=== PATIENT | male | born 1940 | race Caucasian/White ===

== ENCOUNTER 2017-07-27 16:59 | Observation (INO) | payer MEDICARE, OTHER ==
[2017-07-27 19:23] LABS: #Basophils 0.1 thou/uL (0.0-0.2); #Eosinphils 0.1 thou/uL (0.0-0.7); #Lymphocytes 1.4 thou/uL (1.20-3.40); #Monocytes 1.8 thou/uL (0.11-0.59); #Neutrophils 11.9 thou/uL (1.40-6.50); %Basophils 0.7 % (0.0-1.0); %Eosinophils 0.4 % (0.0-10.0); %Lymphocytes 9.4 % (21.0-51.0); %Monocytes 11.6 % (0.0-10.0); %Neutrophils 77.9 % (42.0-75.0); Mean Corpuscular HGB CONC 35.2 g/dL (32.0-36.0); Mean Corpuscular Hemoglobin 30.7 pg (27.0-31.0); Platelet Count 284 thou/uL (130-400); RBC Distribution Width 12.7 % (11.5-14.5); Red Blood Cell (RBC) Count 4.88 mill/uL (4.70-6.10); White Blood Cell (WBC) Count 15.3 thou/uL (4.8-10.8)
[2017-07-27] MEDS ORDERED: Fentanyl 100 MCG/2 ML VIAL ONE (19:30)
[2017-07-27 19:43] LABS: ALT (SGPT) 25 U/L (8-55); AST (SGOT) 80 U/L (5-34); Albumin 3.9 g/dL (3.4-4.8); Alkaline Phosphatase 97 U/L (40-150); Anion Gap 13 mmol/L (10-20); BUN (Urea Nitrogen) 15 mg/dL (8.4-25.7); Bilirubin, Total 1.2 mg/dL (0.2-1.2); Calc. Creatinine Clearance 0 mL/min (70-130); Calcium 9.1 mg/dL (7.8-10.44); Carbon Dioxide 20 mmol/L (23-31); Chloride 103 mmol/L (98-107); Estimated GFR-MDRD Greater than 90; Globulin 3.3 g/dL (2.4-3.5); Glucose 131 mg/dL (83-110); Potassium 4.1 mmol/L (3.5-5.1); Protein, Total 7.2 g/dL (5.8-8.1); Sodium 132 mmol/L (136-145)
--- NOTE | 2017-07-27 20:30 | CT ---
CT OF BRAIN WITHOUT CONTRAST: 07/27/17 INDICATION: History of fall last night. Unsure about loss of consciousness but reported head pain and abrasion ri ght forehead. FINDINGS: There is a prominent right frontal scalp contusion. No acute infarct, hemorrhage, or hydrocephalus is present. There is mild generalized cerebral atrophy. There is incidental note of a tri cisterna mag na. There is mild chronic small vessel white matter ischemic change. The mastoid air cells are clear. There is moderate mucosal thickening within the right maxillary sinus and ethmoid air cells. IMPRESSION: 1. No acute intracranial abnormality. 2. Mild chronic small vessel white matter ischemic change. 3. Prominent paranasal sinus disease. POS: [facility]
--- NOTE | 2017-07-27 20:52 | CT ---
CT FACE WITHOUT CONTRAST: INDICATIONS: Fall with facial injury. FINDINGS: There is a prominent right frontal scalp and right periorbital contusion. There is nondisplaced left nasal bone fracture that may be remote. There is extensive mucosal thickening within the ethmoid ai r cells and right maxillary sinus. There is thickening of the right maxillary sinus wall, suspicious for chronic osteitis, related to paranasal sinus disease. The orbital rims are intact. The maxilla ry sinus graf are intact. There is prominent periodontal disease involving the alveolar ridge of th e maxilla. The mandible is intact. The zygomatic arches and pterygoid plates are intact. There is a burst fracture involving C1 that is better detailed on the cervical spine . IMPRESSION: 1. No definite acute facial fracture. 2. Chronic right maxillary sinusitis. There is also prominent paranasal sinus disease of the ethmoi d air cells. 3. Remote appearing left nasal bone fracture. 4. C1 fracture. POS: [facility]
--- NOTE | 2017-07-27 20:54 | CT ---
CT CERVICAL SPINE WITHOUT CONTRAST 07/27/17 INDICATION: Fall with neck pain. FINDINGS: There is a mildly displaced bilateral posterior arch fracture of C1. There is also a left anterior ar ch fracture of C1. Occipital condyles appear within normal limits. There are calcifications of the at lantoaxial ligamentous structures. There is posterolateral spinal fixation spanning C3 through T2. Th ere are posterior decompression at C5 through C7. There is ankylosis of the C5 through C7 vertebral b odies. There is scattered vascular calcification. There is paraseptal emphysema involving the lung ap ices. IMPRESSION: 1. Comminuted mildly displaced fracture involving the posterior and anterior arch of C1.([place] on fracture of C1) 2. Extensive postsurgical and degenerative changes of the cervical spine. POS: [facility]
--- NOTE | 2017-07-27 23:03 | HP ---
REQUESTING PHYSICIAN: Dr. Holland, Emergency Department. ADMITTING PHYSICIAN: Dr. Low. CONSULTING PHYSICIAN: Dr. Ramos, Neurosurgery. HISTORY OF PRESENT ILLNESS: Mr. Hearn is a 76-year-old man who was apparently in his usual state o f health yesterday when he fell from his wheelchair while getting out of the shower. He reports that he had consumed alcohol earlier in the day and typically does not drink alcohol and was attempting t o get out of the shower when he slipped on a towel and fell to the ground. This happened at apparent ly 2200 hours yesterday. He reports continuing pain in his neck. He also reported striking his face on the door frame and sustaining ecchymosis to his right eye. He has a history of cervical myelopat hy with a posterior cervical fusion of C3 through T2 done in 2015. He reports chronic spasms of lowe r extremities since that time. So, he typically gets around in a wheelchair due to his limited mobil ity from the cervical fusion and cervical myelopathy. Workup in ED today identified a C1 fracture. Trauma Services was consulted for admission and management. Neurosurgery was consulted by the VICENTA dale and the patient has been seen in the ER by Neurosurgery. He reports that pain is significant in his posterior neck. A cervical collar has been placed. He describes his motor and sensory to be the same as prior to the fall. PAST MEDICAL HISTORY: Hypothyroid. PAST SURGICAL HISTORY: Posterior cervical fusion C3 through T2 in 2016, left knee surgery in 1975. SOCIAL HISTORY: Alcohol: The patient reports he drinks rarely; however, did consume alcohol on the day of injury. The patient denies drug use. The patient denies tobacco use. CURRENT MEDICATIONS: 1. Synthroid, unknown dosage. 2. Senokot. 3. Aleve as needed. LABORATORY DATA: WBC 15.3, RBC 4.88, hemoglobin 15.0, hematocrit 42.5, platelets 284. Chemistry: S odium 132, potassium 4.1, chloride 103, carbon dioxide 20, BUN 15, creatinine 0.80, glucose 131, AST 80, ALT 25, alkaline phosphatase 97. DIAGNOSTIC IMAGING: C1 Mac fracture identified on cervical spine CT. REVIEW OF SYSTEMS: Constitutional: The patient denies chills, fever, recent weight loss or generali zed malaise. HEENT: Reports right eye swelling and bruising. Denies rhinorrhea or otorrhea. Repor ts posterior neck pain. Cardiovascular: Denies chest pain, palpitations, syncope. Respiratory: De nies shortness of breath, cough, wheezing. Gastrointestinal: Denies abdominal pain, nausea, vomitin g, diarrhea. Genitourinary: Denies dysuria, hematuria. Musculoskeletal: Reports chronic spasms in lower extremities. Skin: Reports abrasion to right forehead. Neurologic: Reports chronic neuropa thy bilateral lower extremities. PHYSICAL EXAMINATION: VITAL SIGNS: Blood pressure 112/61, pulse 97, respirations 20, temperature 98.8, O2 sat 95% on room air. Pain 0/10. CONSTITUTIONAL: Well-developed, well-nourished male, in no acute distress, nontoxic appearing. HEENT: Cervical collar in place. Posterior neck tenderness. Right periorbital ecchymosis. Trachea midline. RESPIRATORY: Bilateral breath sounds clear. No respiratory distress. Chest wall movement symmetric al. CARDIOVASCULAR: Regular rate and rhythm. Heart sounds normal. ABDOMEN: Soft, nontender, nondistended. BACK: No tenderness. EXTREMITIES: Moves all extremities. Strength equal in all extremities. Cap refill brisk. Pulses i ntact, 2+. NEUROLOGIC: GCS is 15. Awake, alert, and oriented x3. SKIN: Warm and dry, normal in color, normal temperature. PSYCHIATRIC: Normal mood and affect. ASSESSMENT: 1. Status post fall from wheelchair. 2. C1 fracture. 3. Acute traumatic pain. 4. Right periorbital ecchymosis. PLAN: 1. Admit to surgical floor for neurologic monitoring and pain control. 2. Clear liquid diet. 3. PT, OT evaluation. 4. Rehab screening. 5. Appreciate neurosurgical recommendations. 6. Pepcid for PUD prophylaxis. 7. SCDs for DVT prophylaxis. 8. Nursing to verify home medications. The patient was discussed with Dr. Low at the time of admission.
[2017-07-27] MEDS ORDERED: Bisacodyl 10 MG SUPP PR PRN (23:13)
[2017-07-27] MEDS ORDERED: hydrALAZINE 20 MG/ML VIAL SLOW IVP PRN (23:13)
[2017-07-27] MEDS ORDERED: Dextrose 5% in Water 1,000 ML IV PRN (23:13)
[2017-07-27] MEDS ORDERED: Dextrose 50% Abboject 50 ML SYRINGE SLOW IVP PRN (23:13)
[2017-07-27 23:58] VITALS: BMI 29.6
[2017-07-28] MEDS: Acetaminophen 500 MG TAB PO SCH ×4 (00:49→16:57)
--- NOTE | 2017-07-28 04:52 | CON ---
NEUROSURGICAL SERVICE HISTORY OF PRESENT ILLNESS: Mr. Hearn is a 76-year-old man who was brought to the emergency depart ment today at [facility] after falling from his wheelchair last night and falling on his fac e where he suffered a right orbital hematoma. He had continued and increasing neck pain, which ultim ately brought him to the emergency department today. CT scan performed here at the brain, it is nega tive for any intracranial abnormality and the cervical spine reveals a Mac-type fracture of the first cervical vertebrae involving the left anterior arch and the right posterior arch just medial t o the lateral mass of C1 on the right. There does not look to be any significant displacement in the facet articulation of C1-C2, so at least for now it does not appear to be significantly unstable. A lso on this CAT scan, it does reveal, but he has a posterior cervical fusion and decompression and la minectomy from C3-T2. He states at bedside this was performed in 2016 by surgeon in [place] for cervi miguel myelopathy, but he still suffers consequence from today, which is why he is in a wheelchair at [facility] when he fell. At bedside, he is in a cervical collar, again he does have this right periorbital h ematoma and ecchymosis, but can open his eyes. Pupils are equally round and reactive to light. His extraocular movements are intact. He has a normal nonfocal upper extremity motor exam with only jorge l r clumsiness of the hand. His bilateral lower extremities are stiff and slow to move and are somewha t spastic with slightly increased reflexes at the patellar bilaterally. He does reiterate the fact t hat at home, he is mostly in a wheelchair for mobility purposes. ASSESSMENT: C1 Mac fracture. PLAN: From a neurosurgical standpoint, we do not believe that this will be a surgical intervention, however, I believe the prior admission, mostly for the fact that this would be an unsafe fracture to send somebody home who is so unstable and unsteady on his feet, I believe we will need to bring him i n, fit him for better cervical collar as this is a rather ill-fitting one and have been worked up for rehab admission for the purpose of his myelopathic symptoms. He will need to wear his collar at all times. We will also need to obtain a [place] collar, but he can wear during bathing. This aylin l likely need to be in place for at least 6 to 8 weeks. We will plan to follow up with him intervall y every 2 weeks in clinic. Otherwise, I do not forsee him to have any significant trouble from this going forward as long as he continues to wear his collar. This was conveyed to him and his family at bedside.
[2017-07-28] MEDS: Polyethylene Glycol 3350 17 GM Packet PO SCH (07:49)
[2017-07-28] MEDS: traMADol HCl 50 MG TAB PO PRN ×2 (07:49→16:56)
[2017-07-28] MEDS: Senokot S 8.6-50 MG TAB PO SCH ×2 (07:49→20:01)
[2017-07-28] MEDS: Famotidine 20 MG TAB PO SCH ×2 (07:49→20:01)
--- NOTE | 2017-07-28 08:35 | PRG ---
DATE OF SERVICE: 07/28/2017 Mr. Hearn is a 76-year-old male with a history of cervical myelopathy status post posterior cervica l fusion. He has a baseline degree of significant disability. He was in his wheelchair yesterday an d he fell from his wheelchair. This prompted an ER visit where he had an evaluation in the ER which revealed the presence of a C1 fracture consistent with a Mac type fracture. I have reviewed th e CT imaging and do not believe this will need to be treated surgically. We will maintain him in a c ervical spine collar and follow up with him over a series of outpatient appointments with appropriate imaging. He can be discharged at any time from my perspective to a rehab versus usp víctor veronica back to where he was living. Neurosurgical service will sign off.
[2017-07-28] MEDS ORDERED: Sodium Chloride 0.9% 500 ML IV SCH (10:00)
--- NOTE | 2017-07-28 11:12 | PRG-2 ---
DATE OF SERVICE: 07/28/2017 ATTENDING PHYSICIAN: Dr. Raymundo Campos SUBJECTIVE: Mr. Hearn is a 76-year-old male who now fell out of his wheelchair on 07/26/2017. The patient was found to have a mildly displaced C1 fracture. The patient has been in a C-collar since initial evaluation. He reports continued neck pain that is worse with sitting up and better when he lies down. The patient also reports a headache, but that has since resolved. The patient was able t o tolerate clear liquid diet without difficulty. The patient is passing gas, but has not had a bowel movement since his initial hospitalization. The patient normally mobilizes with a wheelchair due to preexisting cervical myelopathy and chronic spasms of the lower extremity. OBJECTIVE: VITAL SIGNS: Temperature 97.8, pulse 77, respiratory rate 16, O2 sat 95% on room air, blood pressure 88/49. GENERAL: Well-developed, well-nourished elderly male lying in bed with a C-collar in place, in no ac [place] distress. HEENT: Normocephalic. Ecchymosis surrounding bilateral eyes. NECK: C-collar in place. RESPIRATORY: No use of accessory muscles of respiration. Clear to auscultation bilaterally. CARDIOVASCULAR: Regular rate and rhythm. No murmurs, gallops. ABDOMEN: Nondistended, soft, nontender. Normoactive bowel sounds. EXTREMITIES: Moves all extremities equally. No peripheral edema. NEUROLOGIC: GCS 15. Alert, awake, oriented x3. No gross neuro deficits. ASSESSMENT: 1. Status post fall from wheelchair. 2. C1 fracture. 3. Bilateral periorbital ecchymosis. 4. Acute traumatic pain. PLAN: 1. Advance diet to regular diet. 2. Continue C-collar for mobilization and follow up with Neurosurgery outpatient. 3. PT, OT and rehab screen. 4. Tramadol and Tylenol for pain control. 5. Pepcid for GI prophylaxis. 6. SCDs for DVT prophylaxis. Dr. Campos saw and examined the patient and formulated the plan with me.
[2017-07-29] MEDS: Acetaminophen 500 MG TAB PO SCH ×4 (00:08→18:31)
--- NOTE | 2017-07-29 01:53 | PRG ---
DATE OF SERVICE: 07/29/2017 SUBJECTIVE: Patient is currently on the surgical floor status post fall from his wheelchair and was sustained a C1 fracture. Patient is going to be treated in a cervical collar and is currently awaiti ng placement decision. By nursing report, the patient's pain is controlled and he is tolerating regu lar diet. Patient was also awaiting a new cervical collar, otherwise he has had no issues. OBJECTIVE: VITAL SIGNS: Temperature is 98.1, heart rate 60, blood pressure 94/60, respirations 16, oxygen satur ation 97% on room air. GENERAL: Patient is asleep in bed and appears in no distress. ASSESSMENT AND PLAN: 1. Status post mechanical fall. 2. C1 fracture. Plan: Will be to continue supportive care and then await placement decision and new cervical collar.
[2017-07-29 05:05] LABS: Anion Gap 11 mmol/L (10-20); BUN (Urea Nitrogen) 15 mg/dL (8.4-25.7); Calc. Creatinine Clearance 96 mL/min (70-130); Calcium 8.5 mg/dL (7.8-10.44); Carbon Dioxide 24 mmol/L (23-31); Chloride 109 mmol/L (98-107); Estimated GFR-MDRD Greater than 90; Glucose 81 mg/dL (83-110); Magnesium 1.8 mg/dL (1.6-2.6); Phosphorus 2.8 mg/dL (2.3-4.7); Potassium 3.8 mmol/L (3.5-5.1); Sodium 140 mmol/L (136-145)
[2017-07-29 05:48] LABS: Band 6 % (5-11); Eosinophils 5 % (0-10); Lymphocytes 22 % (21-51); MDiff Complete? YES; Mean Corpuscular HGB CONC 34.9 g/dL (32.0-36.0); Mean Corpuscular Hemoglobin 31.4 pg (27.0-31.0); Mean Corpuscular Volume 90.1 fl (80.0-94.0); Mean Platelet Volume 7.5 fL (7.4-10.4); Monocytes 16 % (0-10); Neutrophil 43 % (42-75); PLT Morphology Comment Appears Adequate; Platelet Count 238 thou/uL (130-400); RBC Distribution Width 13.1 % (11.5-14.5); RBC Morphology Normal; Reactive Lymphocytes 7 % (0-10); Red Blood Cell (RBC) Count 4.14 mill/uL (4.70-6.10); White Blood Cell (WBC) Count 9.5 thou/uL (4.8-10.8)
[2017-07-29] MEDS: Famotidine 20 MG TAB PO SCH ×2 (08:34→21:17)
[2017-07-29] MEDS: Polyethylene Glycol 3350 17 GM Packet PO SCH (08:34)
[2017-07-29] MEDS: Senokot S 8.6-50 MG TAB PO SCH ×2 (08:34→21:17)
[2017-07-29] MEDS ORDERED: Lactated Ringer's 500 ML IV SCH (10:15)
[2017-07-29] MEDS: traMADol HCl 50 MG TAB PO PRN (13:15)
--- NOTE | 2017-07-29 19:37 | PRG ---
DATE OF SERVICE: 07/29/2017 ATTENDING PHYSICIAN: Dr. Campos. SUBJECTIVE: Mr. Hearn is a 76-year-old male, who fell out of his wheelchair on 07/26/2017 and was found to have a mildly displaced C1 fracture. He has a history of cervical myelopathy with C2 and C3 fusion. He has chronic bilateral lower extremity spasticity and is mostly confined to a wheelchair. This morning on exam, he is alert, lying in bed. He reports adequate pain control and voices no ot her complaints. OBJECTIVE: VITAL SIGNS: Blood pressure 102/66, pulse 75, temperature 98.3, respirations 14, O2 sat 95% on room air. GENERAL APPEARANCE: The patient is an elderly adult male, lying in bed. He has a C-collar in place. He is in no acute distress. HEENT: Normocephalic. He has bilateral periorbital ecchymosis. He has a C-collar in place. RESPIRATORY: Breath sounds are clear to auscultation bilaterally with normal effort. CARDIOVASCULAR: He has a regular rate and rhythm with no murmurs, gallops or rubs. ABDOMEN: Soft, nontender, nondistended. He has normal bowel sounds. EXTREMITIES: He is neurovascularly intact x4. NEUROLOGIC: His GCS is 15 this morning. He has no focal deficits. LABORATORY DATA: Today, CBC significant for white blood cells at 9.5, hemoglobin 13.0, hematocrit 37 .3, platelets 238. Chemistry significant for a chloride of 109, glucose of 81. His potassium is bor derline low at 3.8, magnesium borderline low at 1.8. IMAGING: There are no images to review today. ASSESSMENT: 1. Status post fall from wheelchair. 2. C1 burst fracture. 3. Bilateral periorbital ecchymosis. 4. Acute traumatic pain. 5. History of cervical myelopathy with bilateral lower extremity spasticity. PLAN: 1. Continue regular diet. 2. PT and OT for help with mobilization. 3. We will consult Neurosurgery for recommendations for starting chemical deep venous thrombosis pro phylaxis. 4. Case management is following for help with discharge planning. The patient will likely discharge to rehabilitation. This patient was seen and examined along with Dr. Raymundo Campos on rounds, who agrees with the assess ment and plan.
[2017-07-29] MEDS: Enoxaparin Sodium 40 MG/0.4 ML SYRINGE SC SCH (21:17)
[2017-07-30] MEDS: Acetaminophen 500 MG TAB PO SCH ×5 (00:11→23:46)
[2017-07-30] MEDS: Senokot S 8.6-50 MG TAB PO SCH ×2 (09:18→20:31)
[2017-07-30] MEDS: Polyethylene Glycol 3350 17 GM Packet PO SCH (09:18)
[2017-07-30] MEDS: Famotidine 20 MG TAB PO SCH ×2 (09:18→20:31)
--- NOTE | 2017-07-30 17:25 | PRG ---
DATE OF SERVICE: 07/30/2017 ATTENDING PHYSICIAN: Raymundo Campos DO SUBJECTIVE: Mr. Hearn is a 76-year-old male who fell out of his wheelchair on 07/26/2017 and was f ound to have a mildly displaced C1 fracture. He has a history of cervical myelopathy with C2 and C3 fusion. He was placed in a [place] J collar and started on physical and occupational therapy. He repo rts adequate pain control. He reports that he is anticipating being discharged to rehabilitation. OBJECTIVE: VITAL SIGNS: Temperature 98.2, pulse 60, respirations 18, O2 sat 97% room air, blood pressure 135/69 . GENERAL: Well-developed, well-nourished male, in no acute distress, lying in bed. HEENT: Atraumatic, normocephalic. Cervical collar in place. RESPIRATORY: Bilateral breath sounds clear to auscultation. No respiratory distress. CARDIOVASCULAR: Regular rate and rhythm. Heart sounds normal. ABDOMEN: Soft, nontender, nondistended. EXTREMITIES: Neurovascular intact x4. Pulses 2+ peripherally. Cap refill brisk. NEUROLOGIC: GCS 15. Awake, alert, oriented x3. No focal deficits. ASSESSMENT: 1. Status post fall from wheelchair. 2. C1 burst fracture. 3. History of cervical myelopathy. 4. Nonoperative management of C1 burst fracture, placed in [place] J collar. 5. Mobilizing with physical and occupational therapy. PLAN: 1. Continue physical and occupational therapy as ordered. 2. Continue regular diet. 3. Lovenox for DVT prophylaxis. 4. Pepcid for PUD prophylaxis. 5. Case management following for discharge planning. Anticipate patient will discharge to rehab in the next 2-3 days. The patient was seen and examined with Dr. Campos, who agrees with plan.
[2017-07-30] MEDS: traMADol HCl 50 MG TAB PO PRN (20:31)
[2017-07-30] MEDS: Enoxaparin Sodium 40 MG/0.4 ML SYRINGE SC SCH (20:32)
[2017-07-31] MEDS: Acetaminophen 500 MG TAB PO SCH ×4 (05:43→23:40)
[2017-07-31] MEDS: Famotidine 20 MG TAB PO SCH ×2 (08:40→20:34)
[2017-07-31] MEDS: traMADol HCl 50 MG TAB PO PRN ×2 (08:40→20:34)
[2017-07-31] MEDS: Polyethylene Glycol 3350 17 GM Packet PO SCH (08:40)
[2017-07-31] MEDS: Senokot S 8.6-50 MG TAB PO SCH ×2 (08:40→20:34)
[2017-07-31] MEDS: Enoxaparin Sodium 40 MG/0.4 ML SYRINGE SC SCH (20:35)
--- NOTE | 2017-07-31 20:58 | PRG ---
DATE OF SERVICE: 07/31/2017 ATTENDING PHYSICIAN: Dr. Raymundo Campos. SUBJECTIVE: Mr. Hearn is a 76-year-old male who fell out of his wheelchair on 07/26/2017, was foun d to have a mildly displaced C1 fracture. He has a history of cervical myelopathy with C2 and C3 fus ion. He was placed in a [place] J collar and started with physical and occupational therapy. He has b een stable in the surgical floor. He is currently awaiting approval for placement and rehab facility . OBJECTIVE: VITAL SIGNS: Temperature 97.5, pulse 78, respirations 14, O2 sat 98% room air, and blood pressure 12 8/78. GENERAL: Elderly male sitting up in chair, no acute distress, nontoxic appearing. HEENT: Atraumatic, normocephalic. NECK: [place] J cervical collar in place. RESPIRATORY: Bilateral breath sounds clear. No respiratory distress. CARDIOVASCULAR: Regular rate and rhythm. Heart sounds normal. ABDOMEN: Soft, nontender, nondistended. EXTREMITIES: Neurovascular intact x4. Pulses 2+ peripherally. Cap refill brisk. NEUROLOGIC: GCS 15, awake, alert, oriented x3. No focal deficits. ASSESSMENT: 1. Status post fall from wheelchair. 2. C1 burst fracture. 3. History of cervical myelopathy. 4. Nonoperative management of C1 burst fracture, placed in [place] J collar. 5. Mobilizing with physical and occupational therapy. PLAN: 1. Continue physical and occupational therapy as ordered. 2. Continue regular diet. 3. Lovenox for DVT prophylaxis. 4. Pepcid for PUD prophylaxis. 5. Encourage the patient to request tramadol if he begins to experience pain. The patient reports h e is not want to take anything more than Tylenol. 6. Case management following for discharge planning. Anticipate patient will discharge to rehab whe never approval obtained. The patient was seen and examined with Dr. Campos, who agrees with plan.
[2017-08-01] MEDS: Acetaminophen 500 MG TAB PO SCH ×4 (05:56→23:29)
[2017-08-01] MEDS: Senokot S 8.6-50 MG TAB PO SCH ×2 (08:34→21:01)
[2017-08-01] MEDS: Famotidine 20 MG TAB PO SCH ×2 (08:34→21:01)
[2017-08-01] MEDS: Polyethylene Glycol 3350 17 GM Packet PO SCH (08:34)
--- NOTE | 2017-08-01 09:39 | PRG ---
DATE OF SERVICE: 08/01/2017 SUBJECTIVE: Mr. Hearn is a 76-year-old man status post ground level fall where he sustained a C1 f racture. The patient is currently being managed with a C-collar. He remains hemodynamically and chyna rologically stable. [place] coma scale is 15. He moves all extremities and answers questions approp riately. The patient is tolerating general diet, having normal bowel and urinary function. He remai ns unsteady on his gait; however participated well with physical therapy. OBJECTIVE: VITAL SIGNS: Today includes blood pressure is 95/59, pulse is 51, respiratory rate 16, temperature i s 97.9 degrees Fahrenheit, and oxygen saturation is 97% on room air. HEENT: Reveals normocephalic and atraumatic. Pupils are equal, round, reactive to light and accommo dation. HEART: Reveals regular rate and rhythm, no murmurs or gallops auscultated. LUNGS: Clear to auscultation bilaterally. Breathing is regular and unlabored. ABDOMEN: Soft, nontender, nondistended. EXTREMITIES: Reveals 2+ radial and pedal pulses bilaterally. No ankle edema is present. MUSCULOSKELETAL: Examination reveals 5/5 muscle strength in both upper and lower extremities bilater ally. NEUROLOGIC: Examination reveals no focal deficits present. IMPRESSION: 1. Post-injury day #5, status post ground level fall. 2. C1 burst fracture, normal. PLAN: Continue physical and occupational therapy. The patient is pending transfer to inpatient reha bilitation once bed becomes available.
[2017-08-01] MEDS: traMADol HCl 50 MG TAB PO PRN ×2 (16:36→23:29)
[2017-08-01] MEDS: Enoxaparin Sodium 40 MG/0.4 ML SYRINGE SC SCH (21:01)
[2017-08-02] MEDS: Acetaminophen 500 MG TAB PO SCH ×2 (07:19→11:48)
[2017-08-02] MEDS: Senokot S 8.6-50 MG TAB PO SCH (08:37)
[2017-08-02] MEDS: Famotidine 20 MG TAB PO SCH (08:37)
[2017-08-02] MEDS: Polyethylene Glycol 3350 17 GM Packet PO SCH (08:37)
[2017-08-02 11:46] VITALS: BP 104/69; TEMP 97.7
--- NOTE | 2017-08-02 14:19 | DIS ---
DATE OF ADMISSION: 07/27/2017 DATE OF DISCHARGE: 08/02/2017 ADMITTING PHYSICIAN: Dr. Low. DISCHARGING PHYSICIAN: Dr. Campos. ADMISSION DIAGNOSIS: C1 burst fracture. DISCHARGE DIAGNOSIS: C1 burst fracture. PROCEDURES PERFORMED: None. HOSPITAL COURSE: Mr. Hearn is a 76-year-old male who was in his usual state of health when he fell out of his wheelchair while getting out of the shower. He was brought to the [facility] ED where he was evaluated and found to have a C1 burst fracture. Neurosurgery was consulted and trauma service was asked to admit. The patient was placed in a [place] J collar per Neurosurgery recommendations with a [place] collar to supplement during showering. The patient remained hemodynamically and neur ologically stable throughout his stay. He was thought to be a good candidate for rehabilitation. Marvin barrow, on 08/02/2017, the patient decided to go home rather than continue to wait on a rehab placemen t. The patient was counseled about the benefit of going to rehab, but ultimately decided that he wan mary to go home instead. The patient was discharged to home in stable condition on 08/02/2017. DISCHARGE MEDICATIONS: The patient was given a prescription for tramadol 50 mg tablets 1 tablet q.6 hours as needed for pain. NURSING INSTRUCTIONS: Regular diet. THERAPY INSTRUCTIONS: None. EQUIPMENT AND SUPPLIES: [place] J collar and Pratt collar. FOLLOWUP INSTRUCTIONS: The patient is instructed to follow up with his PCP in 7 days. The patient a lso instructed to follow up with Dr. Ramos in Neurosurgery in 2 weeks. This patient was seen and examined on rounds with Dr. Campos, who agrees with this discharge plan.
== END 2017-08-02 13:00 | disposition home or self-care (01) ==
LOC: ERS 16:59 → SURG A 21:55
PROVIDERS: ADMIT Surgery; ATTEND Surgery
DX: S12.01XA Stable burst fracture of first cervical vertebra, initial encounter for closed fracture (principal); G89.11 Acute pain due to trauma; S05.11XA Contusion of eyeball and orbital tissues, right eye, initial encounter; E03.9 Hypothyroidism, unspecified; M50.01 Cervical disc disorder with myelopathy, high cervical region; Z98.1 Arthrodesis status; Z79.899 Other long term (current) drug therapy; W01.198A Fall on same level from slipping, tripping and stumbling with subsequent striking against other object, initial encounter; W05.0XXA Fall from non-moving wheelchair, initial encounter; Y92.002 Bathroom of unspecified non-institutional (private) residence as the place of occurrence of the external cause
CPT/HCPCS: 70450; 70486; 72125; 80048; 80053; 83735; 84100; 85025 ×2; 96372 ×4; 96374; 97116 ×3; 97139 ×3; 97530 ×4; 99285; G0378 ×2; G8978; G8979; G8987; G8988; L0174; 36415; J1650; J3010

== ENCOUNTER 2017-08-17 09:41 | Outpatient (CLI) | payer MEDICARE ==
--- NOTE | 2017-08-17 11:42 | RAD ---
FOUR VIEWS CERVICAL SPINE: HISTORY: Cervical fracture. The patient fell in July 25, 2017. Neck surgery. COMPARISON: None. CORRELATION: CT cervical spine 07/27/17. FINDINGS: Stable postsurgical change. Stable fusion of the cervical spine. No prevertebral soft tissue swelli ng. Limited evaluation of the C1 ring on the open-mouth projection. Previously noted fracture canno t be assessed. Limited evaluation of the odontoid process. IMPRESSION: Limited evaluation of the C1 fracture. POS: [facility]
== END 2017-08-17 09:42 | disposition home or self-care (01) ==
LOC: TBSIIMAG 09:41
PROVIDERS: ATTEND Neurological Surgery
DX: S12.000A Unspecified displaced fracture of first cervical vertebra, initial encounter for closed fracture (principal)
CPT/HCPCS: 72040

== ENCOUNTER 2017-09-07 08:44 | Outpatient (CLI) | payer MEDICARE ==
--- NOTE | 2017-09-07 11:16 | CT ---
CT CERVICAL SPINE WITHOUT CONTRAST: Technique: Multiple axial tomograms were obtained through the cervical spine without IV contrast. Indication: Follow up cervical spine fracture. Comparison: 07-27-17 FINDINGS: C1 fractures are again noted. Fracture of the anterior ring of C1 to the left of midline is again see n and shows increased distraction of fragments when compared to prior study. Distraction is now measu red at approximately 8 mm where as previously the distraction of the fragments at this location are m easured approximately 3 mm. The fractures involving the posterior ring of C1 bilaterally appear uncha nged in position with no significant displacement posteriorly. No evidence of callus or healing. Post op changes are again noted with pedicle screws posteriorly with laminectomy changes. There are s econdary degenerative and spondolytic changes again noted. IMPRESSION: C1 fracture again noted. Increased distraction of the fragments involving fracture of the anterior ri ng of C1 to the left as described above. POS: [facility]
== END 2017-09-07 08:45 | disposition home or self-care (01) ==
LOC: TBSIIMAG 08:44
PROVIDERS: ATTEND Neurological Surgery
DX: S12.000D Unspecified displaced fracture of first cervical vertebra, subsequent encounter for fracture with routine healing (principal)
CPT/HCPCS: 72125

== ENCOUNTER 2017-10-14 12:39 | Outpatient (CLI) | payer MEDICARE ==
--- NOTE | 2017-10-14 14:32 | CT ---
CT OF THE CERVICAL SPINE WITHOUT CONTRAST: Comparison: 09-07-17 History: Fracture of C1 from prior fall in July 2016. Technique: Multiple contiguous axial images were obtained in a CT of the cervical spine without contr ast. Sagittal and coronal reformats were performed. FINDINGS: There is a fracture of the left aspect of the anterior ring of C1 with approximately 6-7 mm of displa cement. There is a fracture of the posterior left arch of C1. This is also unchanged. Post-surgical c hanges are seen in the cervical spine from fusion of C3 through T2. There is stable subluxation of C7 on T1. There has been removal of the posterior elements in the lower cervical spine. When compared t o the prior examination, no significant change in the degenerative changes or of the fracture is seen . Atherosclerotic calcifications are seen in the aorta. The visualized lung apices are unremarkable. IMPRESSION: 1. Stable/unchanged fracture of C1. 2. Stable degenerative changes and post-surgical changes of the cervical spine. POS: ANIKET
== END 2017-10-14 12:40 | disposition home or self-care (01) ==
LOC: TBSIIMAG 12:39
PROVIDERS: ATTEND Neurological Surgery
DX: S12.000D Unspecified displaced fracture of first cervical vertebra, subsequent encounter for fracture with routine healing (principal); M47.892 Other spondylosis, cervical region; Z98.890 Other specified postprocedural states
CPT/HCPCS: 72125

== ENCOUNTER 2020-03-12 06:58 | Day surgery (SDC) | payer MEDICARE ==
[2020-03-11 13:19] VITALS: BMI 25.8
[2020-03-12 08:10] VITALS: BP 112/71; TEMP 96.7
[2020-03-12] MEDS ORDERED: Iopamidol-M 300 61% 15 ML VIAL ONE ×2 (10:19→10:38)
[2020-03-12] MEDS ORDERED: FLU VACC QS2020-21(65YR UP)/PF 240 MCG/0.7 ML SYRINGE IM ONE (13:30)
--- NOTE | 2020-03-12 17:23 | CT ---
CT cervical spine with contrast: (CT cervical myelogram) 03/12/2020 HISTORY: 79-year-old male with ICD-10: "M 47.12, cervical spondylosis with myelopathy" COMPARISON: Noncontrast CT of 10/14/2017 FINDINGS: Chronic peripheral, subpleural interstitial infiltrates with numerous blebs, consistent with parasept al emphysema, has worsened at the lung apices since 2018. Incidental finding of tri cisterna magna. Vertebral body heights are maintained. Bilateral vertical interlocking rods connecting bilateral posterior element screws at lateral masses of C3, C4, C5, C6, T1, and T2, remain. Wide laminectomy defects from C3-4 through C7-T1, again noted. Osseous bridges across very narrowed degenerated disc spaces at C4-5, C5-6, and C6-7. Severe disc space narrowing at C7-T1, where there is chronic grade 1 anterolisthesis of C7 on T1 due to severe bilateral facet DJD. Multilevel severe bilateral facet DJD, including left C2-3, and all other levels bilaterally from C3- 4 through C7-T1. Probable ankylosis of many of the bilateral facet joints, definitely on the right at C3-4. Vertebral body heights are preserved. Cervical spinal cord is normal in position and diameter. No cord impingement at any level. No central spinal canal stenosis or thecal sac stenosis at any level. The previously demonstrated 7 mm gap of the left anterior C1 arch, has significantly narrowed. There is no union, but the gap is currently only 1 to 3 mm (depending on where it is measured). The previously demonstrated nondisplaced fracture of the left portion of the posterior C1 ring, close to the lateral mass of C1, has now healed and united. At the contralateral right posterior C1 ring, close to the right lateral mass, there was a fracture g ap of approximately 3 mm, which has currently narrowed to approximately 1 mm. At least mild DJD at bilateral atlantoaxial joints, with chronic mild subluxation on the left. Uncinate process osteophytes of varying sizes, including moderately large, encroach upon bilateral ne ural foramina. Degree of neural foraminal stenosis: C2-3: None C3-4: Mild to moderate right. None on the left. See 4-5: Mild to moderate bilaterally. C5-6: None on right. Mild on left. C6-7: None on right. Mild on left. C7-T1: Mild to moderate on right. Possibly severe on left, although severe streak artifact limits ann luation. IMPRESSION: 1.) Cervical spondylosis with multilevel severe degenerative disc disease and multilevel severe facet osteoarthrosis. 2) bilateral posterior element metallic hardware throughout much of the cervical spine, and at 2 leve ls in the upper thoracic spine. 3) successful ankylosis at multiple levels. 4) multilevel laminectomies. 5) no central spinal canal stenosis, cord impingement, or cord atrophy, at any level. 6) old C1 (atlas) Mac burst fractures. The left posterior ring fracture has completely healed. The other 2 fractures demonstrate nonunion, but the fracture gaps have decreased. 7) paraseptal emphysema and fibrotic changes at the lung apices, worse since 10/14/2017.
--- NOTE | 2020-03-12 17:29 | RAD ---
MYELOGRAM CERVICAL CT-GUIDED LUMBAR PUNCTURE: DATE: 03/12/2020 HISTORY: 79-year-old male with ICD-10: "M 47.12, cervical spondylosis with myelopathy" TECHNIQUE: Signed informed consent obtained. Originally, fluoroscopic guidance for lumbar puncture was planned. Patient was placed prone on fluoroscopy table. However, due to lumbar spondylosis, there was difficul ty in identifying laminar spaces. Therefore, patient was taken to CT for guidance. Patient placed prone on CT table. Skin of lower back prepared and draped in usual sterile fashion. 25 -gauge needle used to apply buffered lidocaine superficially and deeply. Level selected:L5-S1. Approach: Left paramedian interlaminar. 22-gauge spinal needle advanced into spinal canal under step CT guidance. Upon return of clear CSF, 12 mL Isovue M200 contrast media was injected into the intrathecal space. Spinal needle was removed. Patient was taken to fluoroscopy table, and placed supine. Fluoroscopy table tilted Trendelenburg to allow contrast to flow the cervical spine. Patient tolerated procedure well. No complications. FINDINGS: CT images demonstrate spinal needle distal tip within the thecal sac at the L5-S1 level from right pa ramedian approach. Fluoroscopic spot image of lumbar spine demonstrate lumbar spondylosis. [employer] radiograph of cervical spine demonstrate high-grade cervical spondylosis, bilateral posterior e lement screws, and laminectomy defects. IMPRESSION: Successful CT-guided lumbar puncture and subsequent cervical myelogram. See separate report of subsequent CT cervical myelogram.
== END 2020-03-12 11:35 | disposition home or self-care (01) ==
LOC: RAD 06:58
PROVIDERS: ATTEND Neurological Surgery
PROC: B01B1ZZ Fluoroscopy of Spinal Cord using Low Osmolar Contrast (ICD-10-PCS; principal; 2020-03-12)
DX: M47.12 Other spondylosis with myelopathy, cervical region (principal); M50.01 Cervical disc disorder with myelopathy, high cervical region; J43.8 Other emphysema; Z23 Encounter for immunization; Z79.82 Long term (current) use of aspirin; Z79.899 Other long term (current) drug therapy; Z98.1 Arthrodesis status
CPT/HCPCS: 62302; 72126; 77002; 90662; G0008; 90471; Q9967

== ENCOUNTER 2021-07-16 13:11 | Outpatient (CLI) | payer MEDICARE | END 2021-07-16 13:12 | disposition home or self-care (01) | LOC: BICCT 13:11 | PROVIDERS: ATTEND Neurological Surgery | DX: M54.2 Cervicalgia (principal); M48.02 Spinal stenosis, cervical region | CPT/HCPCS: 72125 ==